=== PATIENT | male | born 1975 | race Native Hawaiian/Other Pacific Islander ===

== ENCOUNTER 2017-07-28 16:21 | Emergency (ER) | payer OTHER ==
[2017-07-28 16:30] VITALS: BP 151/96; PULSE 82; RESP 14; TEMP 98.2; O2SAT 98
--- NOTE | 2017-07-28 16:44 | C.PDOC ---
History Of Present Illness 41 y/o M c no PMHx p/w R lower back pain x 2 days. Pain radiates from R lower back down R leg, sharp and shooting, worse with movement. Denies trauma or injury, states was holding shopping bags before. Denies fever, dysuria, urinary incontinence or retention, numbness, or motor weakness. Time Seen by Provider: 07/28/17 16:30 Chief Complaint (Nursing): Back Pain Past Medical History Vital Signs: Last Vital Signs Temp 98.2 F 07/28/17 16:30 Pulse 82 07/28/17 16:30 Resp 14 07/28/17 16:30 BP 151/96 H 07/28/17 16:30 Pulse Ox 98 07/28/17 16:30 Family History: States: No Known Family Hx - Social History Hx Alcohol Use: No Hx Substance Use: No - Immunization History Hx Tetanus Toxoid Vaccination: No Hx Influenza Vaccination: No Hx Pneumococcal Vaccination: No Review Of Systems Except As Marked, All Systems Reviewed And Found Negative. Constitutional: Negative for: Fever Respiratory: Negative for: Shortness of Breath Physical Exam - Physical Exam Additional Physical Exam Comments: Gen: NAD, staying still Head: NC Eyes: No scleral icterus ENT: MMM Neck: No midline tenderness CV: Regular rate Resp: No accessory muscle use Abd: Soft, NT Back: No midline tenderness, R sided tenderness Extremities: No swelling Skin: No rash Neuro: Alert, no focal deficit ED Course And Treatment O2 Sat by Pulse Oximetry: 98 Medical Decision Making Medical Decision Making: Patient with symptoms consistent with sciatica. Will advise antiinflammatories, prescribe Percocet and informed of risks, instructed to f/u with primary care for further imaging if not resolved after 2-3 weeks, instructed to return to ED for fever, dysuria, hematuria, dyspnea, vomiting, urinary or bowel changes, numbness, or weakness. Disposition - Disposition Disposition: HOME/ ROUTINE Disposition Time: 16:45 Condition: STABLE Prescriptions: Famotidine [Pepcid] 1 tab PO BID #14 tab Ibuprofen [Motrin] 600 mg PO Q6 #25 tab Methocarbamol [Robaxin-750] 1 tab PO Q8H #12 tablet oxyCODONE/Acetaminophen [Percocet 5/325 mg Tab] 1 tab PO Q6 #10 tab Instructions: Sciatica Forms: [facility] ([place]ian), Work Excuse - Clinical Impression Clinical Impression: Low back pain
== END 2017-07-28 17:00 | disposition home or self-care (01) ==
LOC: C.ER 16:21
DX: M54.5 Low back pain (principal)
CPT/HCPCS: 96372; 99284; J1885